=== PATIENT | male | born 1955 | race Caucasian/White ===

== ENCOUNTER 2019-02-14 11:04 | Inpatient (IN) | payer SELFPAY ==
[2019-02-14] MEDS ORDERED: CEFAZOLIN/SWI 1gm 1 GM/10 ML SYR ONE (11:32)
[2019-02-14] MEDS ORDERED: Ringers Lactate 1,000 ML IV ONE ×2 (11:32→15:11)
--- NOTE | 2019-02-14 11:46 | RAD REPORT ---
EXAM DESCRIPTION: RAD - Chest Single View - 02/14/2019 11:41 am CLINICAL HISTORY: SURGERY TODAY Chest pain. COMPARISON: CHEST PA AND LAT 2 VIEW dated 01/07/2008 FINDINGS: Portable technique limits examination quality. The lungs are grossly clear. The heart is normal in size. No displaced fractures. IMPRESSION: No acute intrathoracic process suspected.
[2019-02-14 11:59] LABS: Absolute Lymphocytes (CBC) 1.5 K/uL (0.7-4.9); Basophils % 0.6 % (0-1.3); Hematocrit 40.8 % (39.6-49.0); Lymphocytes % 14.2 % (15.3-44.8); RBC Red Blood Cell Count 4.15 M/uL (4.33-5.43)
[2019-02-14 12:03] LABS: Protime INR 1.14
[2019-02-14 12:18] LABS: Albumin 3.7 g/dL (3.4-5.0); Bilirubin Direct 0.2 mg/dL (0-0.2); Bilirubin Total 0.9 mg/dL (0.2-1.0); Protein, Total 7.9 g/dL (6.4-8.2)
[2019-02-14 12:36] LABS: Albumin 3.7 g/dL (3.4-5.0); Bilirubin Total 0.9 mg/dL (0.2-1.0); Potassium 3.8 mmol/L (3.5-5.1); Protein, Total 7.7 g/dL (6.4-8.2)
[2019-02-14] MEDS ORDERED: MIDAZOLAM HCL 2 MG/2 ML INJ ONE (13:50)
[2019-02-14] MEDS ORDERED: dexAMETHasone 10 MG/ML VIAL ONE (13:50)
[2019-02-14] MEDS ORDERED: PROPOFOL 200 MG/20 ML VIAL IV ONE (13:50)
[2019-02-14] MEDS ORDERED: FENTANYL CITR 100 MCG/2 ML ONE ×2 (13:50→14:29)
[2019-02-14] MEDS ORDERED: LIDOCAINE 2% MPF 5 ML VIAL ONE (13:50)
[2019-02-14] MEDS ORDERED: DEPO-MEDROL 40 MG/ML IM ONE (14:54)
[2019-02-14] MEDS ORDERED: BUPIVACAINE 0.25% PF 10 ML VIAL ONE (14:54)
[2019-02-14] MEDS ORDERED: KETOROLAC 30 MG/ML INJ ONE (15:25)
--- NOTE | 2019-02-14 15:49 | P.BOP ---
Preoperative diagnosis: ARTHROSCOPIC IRRIGATION & DEBRIDEMENTLEFT KNEE Postoperative diagnosis: ACUTE RECURRING EFFUSION LEFT KNEE ASSOC.W/FAILURE OUTPT. TX POSS. SEPSIS Primary procedure: [id number] DEBRIDEMENT AND IRRIGATION L KNEE CHRONIC RECURRING EFFUSION Entry Level Software Engineer: Isidro Hoyos Estimated blood loss: 30 mL Specimen: SHAVINGS DIFFUSE SYNOVITIS Findings: DIFFUSE SYNOVITIS; CHONDROMALACIA MED.FEM.COND.&PF JT Anesthesia: General Complications: None Drain(s): Other (Hemovac drain 7 mm inserted to exit lateral parapatellar line.) Implants: NONE Fluids & blood products: INJECTED DEPO-MEDROL 1 mL 40 MG & 0.25% MARCAINE PLAIN 10 mL Transferred to: Recovery Room Condition: Good
[2019-02-14] MEDS ORDERED: ONDANSETRON 4 MG/2 ML VIAL IV PRN (15:55)
[2019-02-14] MEDS: Ringers Lactate 1,000 ML IV SCH (16:00)
[2019-02-14 16:14] LABS: Body Fluid WBC 4680 /mm^3
[2019-02-14 16:49] VITALS: BMI 33.6
[2019-02-14 17:01] LABS: Appearance TURBID (CLEAR); Body Fluid Source SYNOVIAL; Color of fluid Yellow (COLORLESS)
--- NOTE | 2019-02-14 18:09 | P.CNS ---
Date of Consult: 02/14/19 Reason for Consult: recurrent left knee effusion, failed outpatient treatment Requesting Physician: Isidro Hoyos Primary Care Provider: Dr. Shepherd Chief Complaint: Recurrent left knee fusion/pain History of Present Illness: This is a 63-year-old male with past medical history of gout along with alcohol abuse admitted for recurrent left knee swelling and failure of outpatient treatment. Per patient he has been having this left knee effusion/swelling and pain for the past 1 month that has been intermittent. He has been followed by Dr. Hoyos in his clinic. Initial cultures did grow out E. coli, patient was put on oral antibiotics. The knee effusion intermittently return to along with the pain. This time, the episode started on Monday. Patient complains of progressively worsening left knee tightness and swelling. He was seen in Dr. Hoyos's office today, was referred for admission for washout of the knee. We were consulted to help with IV antibiotic choice/treatment. Per patient, he is not sure if he still hurting at this time. He is status post arthroscopic washout and debridement of the left knee, POD#0. He seems to be doing well after the procedure and seems to have tolerated the procedure well. Of note, patient states that he does drink 4-5 beers every day for the past many years. At the time of my exam, he is alert oriented x3, in no acute distress, and hemodynamically stable. He is not very talkative and not really want to talk As he was currently eating at the time of my exam. Allergies morphine Adverse Reaction (Verified 02/14/19 12:36) Nausea/Vomiting Home medications list reviewed: Yes Home Medications: Allopurinol 1 tab PO DAILY 02/14/19 Doxycycline Hyclate [Vibramycin] 100 mg PO BID 02/14/19 levoFLOXacin [Levofloxacin] 1 tab PO DAILY 02/14/19 - Past Medical/Surgical History Diabetic: No -: GOUT -: ARTHRITIS -: ETOH - Social History Smoking Status: Former smoker (Quit 14 years ago) Alcohol use: Yes CD- Drugs: No Caffeine use: Yes Place of Residence: Home Review of Systems 10-point ROS is otherwise unremarkable Physical Examination Temp Pulse Resp BP Pulse Ox 98.9 F 88 16 161/92 H 02/14/19 16:21 02/14/19 16:21 02/14/19 16:21 02/14/19 16:21 General: Alert, In no apparent distress, Oriented x3 HEENT: Atraumatic, PERRLA, Mucous membr. moist/pink, EOMI, Sclerae nonicteric Neck: Supple, 2+ carotid pulse no bruit, No LAD, Without JVD or thyroid abnormality Respiratory: Clear to auscultation bilaterally, Normal air movement Cardiovascular: Regular rate/rhythm, Normal S1 S2 Gastrointestinal: Normal bowel sounds, No tenderness Musculoskeletal: Other (Left knee in bandage, drain in place. Draining serous sanguinous) Integumentary: No rashes Neurological: Normal gait, Normal speech, Normal tone, Normal affect Lymphatics: No axilla or inguinal lymphadenopathy Laboratory Data (last 24 hrs) 02/14/19 11:30: Sodium 138, Potassium 3.8, BUN 14, Creatinine 1.01, Glucose 88, Total Bilirubin 0.9, AST 12 L, ALT 18, Alkaline Phosphatase 92 02/14/19 11:30: Total Bilirubin 0.9, AST 13 L, ALT 19, Alkaline Phosphatase 92 02/14/19 11:30: PT 13.4 H, INR 1.14, APTT 34.5 02/14/19 11:30: WBC 10.4, Hgb 14.5, Hct 40.8, Plt Count 250 - Problems (1) Effusion, left knee Current Visit: Yes Status: Acute Plan: Likely secondary to infectious versus gout. -initial knee fluid cultures in January positive for E. coli. he is status post knee washout and debridement. Cultures pending -we will continue IV antibiotics with Levaquin at this time. -physical therapy and weight-bearing recommendations , as per her primary (2) Failure of outpatient treatment Current Visit: Yes Status: Acute (3) Gout Current Visit: Yes Status: Acute Plan: Patient with history of gout, currently on allopurinol. Will continue colchicine at this time. Qualifiers: Gout site: knee Gout etiology: unspecified cause Chronicity: unspecified Laterality: left Qualified Code(s): M10.9 - Gout, unspecified (4) Alcohol abuse Current Visit: No Status: Chronic Plan: Patient will need counseling on alcohol cessation especially beer as this may contribute to worsening of gout symptoms. Conclusions/Impression: Disposition: Continue to monitor patient. Continue IV antibiotics with Levaquin. If improved, anticipate discharge home in the next 12:48 p.m.. Thank you for this consult, will continue to follow patient with you. Time Spent Managing Pts care (In Minutes): 55
[2019-02-14] MEDS: Levofloxacin500mg IV 500 MG/100 ML BAG IV SCH (21:18)
[2019-02-15] MEDS: ENOXAPARIN 30 MG/0.3 ML SQ SCH ×3 (06:10→20:55)
[2019-02-15 06:15] LABS: Hematocrit 40.1 % (39.6-49.0)
--- NOTE | 2019-02-15 07:42 | EKG ---
Test Date: 2019-02-14 Test Time: 11:24:43 Power Barker Operator: NORMAN MEASUREMENT RESULTS: Intervals: Rate: 81 NV: 156 QRSD: 134 QT: 404 QTc: 469 Teachey: P: 48 NV: 156 QRS: -74 T: 41 INTERPRETIVE STATEMENTS: Normal sinus rhythm with sinus arrhythmia Right bundle branch block Left anterior fascicular block Bifascicular block Abnormal ECG Compared to ECG 01/07/2008 07:26:11 Right bundle-branch block now present Left anterior fascicular block now present Bifascicular block now present Electronically Signed On 02-15-19 07:38:31 CDT by Keagan Arriaza
[2019-02-15] MEDS: Ringers Lactate 1,000 ML IV SCH (08:35)
[2019-02-15] MEDS: ALLOPURINOL 300 MG TAB PO SCH (08:36)
[2019-02-15] MEDS: CELECOXIB 100 MG CAPSULE PO SCH (08:36)
[2019-02-15] MEDS: HYDROCODONE/APAP 7.5/325 MG TAB PO PRN ×2 (08:42→20:57)
--- NOTE | 2019-02-15 13:18 | P.PN ---
Subjective Date of Service: 02/15/19 Primary Care Provider: Dr. Shepherd Chief Complaint: Recurrent left knee fusion/pain Subjective: No C/O voiced, Improving Review of Systems 10-point ROS is otherwise unremarkable Physical Examination - Vital Signs Temperature: 98.2 F Blood Pressure: 137/78 Pulse: 77 Respirations: 16 Pulse Ox (%): 94 - Physical Exam General: Alert, In no apparent distress HEENT: Atraumatic, PERRLA, EOMI Neck: Supple, JVD not distended Respiratory: Clear to auscultation bilaterally, Normal air movement Cardiovascular: Regular rate/rhythm, Normal S1 S2 Gastrointestinal: Normal bowel sounds, No tenderness Musculoskeletal: Tenderness, Other Integumentary: No rashes Neurological: Normal speech, Normal tone, Normal affect Lymphatics: No axilla or inguinal lymphadenopathy - Studies Laboratory Data (last 24 hrs) 02/15/19 05:39: Hgb 13.4 L, Hct 40.1 Assessment And Plan - Current Problems (Diagnosis) (1) Effusion, left knee Current Visit: Yes Status: Acute Plan: Likely secondary to infectious versus gout. -initial knee fluid cultures in January positive for E. coli. he is status post knee washout and debridement. Cultures pending -we will continue IV antibiotics with Levaquin at this time. -physical therapy and weight-bearing recommendations , as per her primary (2) Failure of outpatient treatment Current Visit: Yes Status: Acute (3) Gout Current Visit: Yes Status: Acute Plan: Patient with history of gout, currently on allopurinol. Will continue colchicine at this time. Qualifiers: Gout site: knee Gout etiology: unspecified cause Chronicity: unspecified Laterality: left Qualified Code(s): M10.9 - Gout, unspecified (4) Alcohol abuse Current Visit: No Status: Chronic Plan: Patient will need counseling on alcohol cessation especially beer as this may contribute to worsening of gout symptoms. - Plan Disposition: Continue IV antibiotics at this time. Can convert IV Levaquin to oral Levaquin upon discharge. Continue physical therapy
[2019-02-15] MEDS: Levofloxacin500mg IV 500 MG/100 ML BAG IV SCH (20:55)
[2019-02-16 01:01] VITALS: O2SAT 96
--- NOTE | 2019-02-16 02:29 | OP ---
Date of Procedure: 02/14/2019 Surgeon: Isidro Hoyos MD Appraisal Specialist: Isidro Hoyos M.D. Preoperative Diagnosis: Arthroscopic irrigation and debridement, left knee. Postoperative Diagnosis: Recurrent effusion of left knee associated with failure of outpatient thera py. Possible sepsis is of concern as culture 01/04/2019, produced Escherichia coli as an isolette fr om broth only. Primary Procedure: Arthroscopic debridement and irrigation of the left knee, probably with recurrent effusion with possible infection. Findings: This patient has been responding poorly to outpatient treatment, extensive tearing on ay, 02/11/2019. An aspiration at that time showed a yellow turbid fluid 98 mL incised. The sample s ent to produce WBCs 14,352, neutrophil percentage was 87 and fluid RBCs were 2140. No synovial fluid crystals were seen and the patient has been followed with sequential exams, getting worse with each subsequent exam, presenting initially, ambulating without aid, followed up on Monday. The patient was using crutches upon his return on . Today, the patient was using a wheelchair and jacob ating absolutely no extension or flexion from the 45 degree flexed position. This is the clinical pi cture of a septic knee. Cultures have not been reported and indeed were found to be delayed with ini tiation of culture from that sample started on Monday. This decided the patient cannot be allowed to get worse through into the weekend and he has elected to proceed after discussion of risks and be nefits with diagnostic arthroscopy for irrigation, debridement and further aspiration of synovial flu id. Indications: This 63-year-old male, a tense swollen left knee effusion. On Monday, the effusion smiley ined amounted to 98 mm with an elevated white blood cell count and 87% neutrophils to suggest possibl e infection. The patient a month ago had a late-appearing culture positive for E coli. An exam 1 we ek later showed the knee to be free of discomfort and full range of motion and the patient had return ed to full activities, so no further treatment was attempted at that time. However, the patient retu rned 1 month later with this tensely swollen knee, brings concerned that infection could indeed be th e issue. The second aspiration done on 02/13/2019 was only 37 mL of fluid and since the patient had been started on Levaquin and doxycycline tablets, no aliquot was sent for analysis. The following da y, 02/14/2019, the patient presented with the severely distended joint space suggesting return to the 100 mL effusion size has occurred and the patient initially able to extend and flex the knee, can no longer do so. With these symptoms and concerns, the patient is taken to surgery for irrigation and debridement with the arthroscope and indicated procedures. Technique: The patient was taken to the operating room, given general anesthesia. The tourniquet wa s applied to the proximal left thigh and after prepping and draping, an Esmarch bandage was applied t o exsanguinate the limb. The tourniquet was initially raised to 250 mmHg, but oozing compromised vis ual field with the arthroscope, so the tourniquet was then raised to 300 mmHg and left up for slightl y more than 1 hour. The needle was inserted in the joint from the lateral parapatellar line and 20 m L of yellow fluid was aspirated and sent for cell count and differential, crystal analysis, Gram stai n and cultures. Attention then was turned to inserting the arthroscope from the distal lateral laura l through a vertical puncture. A second vertical puncture was used for insertion of suction shaver f rom the medial distal portal. There was a great deal of resistance for the scope and the shaver to e nter the suprapatellar pouch area. There was hypertrophic synovial tissue and a hypertrophic anterio r fat pad, anterior intracondylar notch. Portions of this were shaved and with irrigation to allow m ovement of the scope and the shaver together. The medial compartment was explored and there was a pa rtial defect most likely from previous arthroscopy to the medial meniscus. This was additionally sha jonathan and smoothed and the chondral defect at that spot was small, round, but full thickness approximat jeferson 7 mm in diameter. This was smoothed and left without microfracture technique, which was risky be cause it was perilously close to the medial edge of the medial tibial plateau. The chondromalacia wa s encountered on the medial femoral condyle and this was shaved and smoothed passing into the intraco ndylar notch. Additional debridement of synovitis and mineral deposition sites was carried out. The ACL was noted to tighten with anterior drawer under stress under direct visualization. Passing the scope into the lateral compartment, there was extensive fronding and fraying of the anterior horn wit h limited exposure and visualization. This area was shaved. There were areas of mineral deposition. They were fairly large. These were also shaved and removed along most of the anterior horn inside margin. The scope was moved up under the patella and there was a chondral defect that was oblong wit h adequate shoulders for continued patellar tracking. Then, the scope was moved into the suprapatell ar pouch and a careful debridement of hypertrophic synovium was initiated in the medial gutter extend ing across usp the anterior aspect of the suprapatellar pouch. Then, the scope was moved to the medial portal and the shaver was moved to the lateral portal. The rest of the anterior suprapatellar pouch was debrided. The hypertrophic synovium was also debrided in the medial gutter. After the de bridement of the suprapatellar pouch and both gutters and intercondylar notch had been completed, the 7 mm Hemovac tube was passed through the medial portal. Under direct visualization, it was passed u nder the patella and pushed out of the lateral parapatellar line to continue evacuation of fluid from the suprapatellar pouch and intra-articular space after the operation. Once the Hemovac tube was po sitioned, it was sutured into place and the Hemovac suction was applied. The punctures were then irr igated after removal of instrumentation and the scope. Interrupted sutures of 4-0 nylon were used to close the punctures. The 10 mL of 0.25% Marcaine were injected into the incisions. Then, 1 mL Depo -Medrol 40 mg was injected into the intra-articular space with some placed laterally close to the lat eral epicondyle where the patient had significant tenderness and suspected infection versus tophus fo rmation. A sterile bandage was then applied using Xeroform gauze for the punctures and around the He movac tube extrusion. This was covered with 4 x 4 gauze and ABD, soft roll and an Leonardo wrap. Estimat ed blood loss was 30 mL. Specimen was diffuse synovitis shavings. Findings included diffuse synovit is, chondromalacia of medial femoral condyle and patellofemoral joint. The patient was then transfer red to the recovery room, having tolerated this procedure well. MANISHA/ROSS Voice ID: [id number] Report ID: [id number]
[2019-02-16] MEDS: HYDROCODONE/APAP 7.5/325 MG TAB PO PRN ×2 (03:24→07:52)
[2019-02-16 06:27] LABS: Hematocrit 37.8 % (39.6-49.0)
[2019-02-16] MEDS: CELECOXIB 100 MG CAPSULE PO SCH (07:51)
[2019-02-16] MEDS: ENOXAPARIN 30 MG/0.3 ML SQ SCH (07:51)
[2019-02-16] MEDS: ALLOPURINOL 300 MG TAB PO SCH (07:51)
[2019-02-16] MEDS: Ringers Lactate 1,000 ML IV SCH (07:53)
--- NOTE | 2019-02-16 10:12 | P.PN ---
Date of Service: 02/15/19 (POD#1) S: PATIENT COMFORTABLE.NO COMPLAINTS THIS AFTERNOON. UP WITH PT TODAY. O:AFEBRILE, VSS, PAIN CHART 0,0,2,5,2. ONLY USED ONE NORCO TAB 08:42. HGB 13.4 DOWN FROM PREOP 14.5. HEMOVAC HAS HAD 110 mL OUTPUT. ROM LEFT KNEE 23* TO 72* BEGINNING PT, 8* TO 88* AFTER PT. ASPIRATE SENT FROM SURGERY SHOWING: YELLOW, TURBID, WBCs 4680, NEUT 92%, RBCs 6934, AND CRYSTALS, MODERATE EXTRA AND INTRACELLULAR URATE DIHYDRATE. GRAM STAIN: WBCs 5-10/OIF, NO ORGANISMS SEEN, CULTURE PRELIMINARY NG. A: DIFFERENCE WITH YESTERDAY'S MOST RECENT ASPIRATE IS POSITIVE URATE CRYSTALS. MONDAY'S ASPIRATE WAS NO CRYSTALS SEEN AND PRIOR ASPIRATION'S 01/04/19 REPORT OF E COLI *ISOLATED FROM [facility] ONLY* RAISED CONCERNS FOR SEPSIS CLINICAL SITUATION WORSENED ON F/U VISITS MON. AND . CHECKED ON CULTURE FROM MONDAY AND NO GROWTH SO FAR TO BE POSSIBLE NG FINAL TOMORROW. P: CONTINUE IV LEVAQUIN TODAY. POSSIBLE DISCHARGE TOMORROW ON P.O. LEVAQUIN AND INDOCIN ER 75mg QD .
[2019-02-16 15:15] VITALS: BP 138/86; TEMP 98.2
--- NOTE | 2019-02-16 15:36 | P.PN ---
Subjective Date of Service: 02/16/19 Primary Care Provider: Dr. Shepherd Chief Complaint: Recurrent left knee fusion/pain Subjective: No C/O voiced, Improving Review of Systems 10-point ROS is otherwise unremarkable Physical Examination - Vital Signs Temperature: 98.2 F Blood Pressure: 138/86 Pulse: 68 Respirations: 16 Pulse Ox (%): 95 - Physical Exam General: Alert, In no apparent distress, Oriented x3 HEENT: Atraumatic, PERRLA, EOMI Neck: Supple, JVD not distended Respiratory: Clear to auscultation bilaterally, Normal air movement Cardiovascular: Regular rate/rhythm, Normal S1 S2 Gastrointestinal: Normal bowel sounds, No tenderness Musculoskeletal: Tenderness (improved) Integumentary: No rashes Neurological: Normal speech, Normal tone, Normal affect Lymphatics: No axilla or inguinal lymphadenopathy - Studies Laboratory Data (last 24 hrs) 02/16/19 05:49: Hgb 13.3 L, Hct 37.8 L Microbiology Data (last 24 hrs): 02/14/19 14:20 Body Fluid - Left Knee Gram Stain - Final 02/14/19 14:20 Body Fluid - Left Knee Gram Stain - Final Assessment And Plan - Current Problems (Diagnosis) (1) Effusion, left knee Status: Acute Plan: Likely secondary to infectious versus gout. -initial knee fluid cultures in January positive for E. coli. he is status post knee washout and debridement. Cultures pending -we will continue IV antibiotics with Levaquin at this time. -physical therapy and weight-bearing recommendations , as per her primary (2) Failure of outpatient treatment Status: Acute (3) Gout Status: Acute Plan: Patient with history of gout, currently on allopurinol. Will continue colchicine at this time. Qualifiers: Gout site: knee Gout etiology: unspecified cause Chronicity: unspecified Laterality: left Qualified Code(s): M10.9 - Gout, unspecified (4) Alcohol abuse Status: Chronic Plan: Patient will need counseling on alcohol cessation especially beer as this may contribute to worsening of gout symptoms. - Plan Disposition: Continue IV antibiotics at this time. Can convert IV Levaquin to oral Levaquin upon discharge. Continue physical therapy. The patient is medically stable and cleared for discharge
== END 2019-02-16 12:03 | disposition home or self-care (01) | DRG 489 ==
LOC: OR 11:04 → INTOOBSV 15:32 → 2ND 15:32 → OBSVTOIN 02-15 15:18
PROVIDERS: ADMIT Family Medicine; ATTEND Orthopaedic Surgery
PROC: 3E1U38Z Irrigation of Joints using Irrigating Substance, Percutaneous Approach (ICD-10-PCS; 2019-02-14)
PROC: 0SBD4ZZ Excision of Left Knee Joint, Percutaneous Endoscopic Approach (ICD-10-PCS; principal; 2019-02-14 13:30)
DX: M00.9 Pyogenic arthritis, unspecified (principal); M25.462 Effusion, left knee; M10.9 Gout, unspecified; F10.20 Alcohol dependence, uncomplicated; M22.42 Chondromalacia patellae, left knee
CPT/HCPCS: 36415; 71045; 80053; 80076; 83036; 85014; 85018; 85025; 85610; 85730; 87070; 87075; 87205; 88304; 89050; 89060; 92851; 93005; 97116; 97161; G0378; J0690; J1030; J1100; J1650; J2250; J2704; J3010